=== PATIENT | male | born 1950 | race African-American/Black ===

== ENCOUNTER 2018-12-02 09:29 | Emergency (ER) | payer OTHER ==
[~2018-12-02] VITALS: Ht 182.9 cm; Wt 72.6 kg
[2018-12-02 09:40] VITALS: BP 114/73
[2018-12-02] MEDS ORDERED: SODIUM CHLORIDE 0.9% 1,000 ML IVB ONE (11:24)
== END 2018-12-02 11:34 | disposition left against medical advice (07) ==
LOC: EDBD 09:29 → ER 09:29
DX: G30.1 Alzheimer's disease with late onset (principal); F02.80 Dementia in other diseases classified elsewhere, unspecified severity, without behavioral disturbance, psychotic disturbance, mood disturbance, and anxiety